=== PATIENT | female | born 1985 | race Two or more races ===

== ENCOUNTER 2018-11-05 12:01 | Emergency (ER) | payer MEDICAID ==
[~2018-11-05] VITALS: Ht 165.1 cm; Wt 65.0 kg
[2018-11-05 15:36] LABS: CLARITY URINE CLEAR (CLEAR); COLOR URINE YELLOW (YELLOW); KETONES URINE NEGATIVE (NEGATIVE); LEUKOCYTE ESTERASE URINE NEGATIVE (NEGATIVE); NITRITE URINE NEGATIVE (NEGATIVE); OCCULT BLOOD URINE NEGATIVE (NEGATIVE); PH URINE 6.5 (4.5-8.0); PROTEIN URINE NEGATIVE (NEGATIVE); SPECIFIC GRAVITY URINE 1.015 (1.005-1.030); UROBILINOGEN URINE 0.2 E.U./dL (0.2-1.0)
[2018-11-05] MEDS ORDERED: ACETAMINOPHEN 325MG TABLET PO ONE (17:30)
[2018-11-05] MEDS ORDERED: ACETAMINOPHEN 325MG TABLET ONE (19:00)
[2018-11-05 20:11] LABS: HCG SCREEN NEGATIVE
[2018-11-05 23:00] VITALS: BP 110/66
== END 2018-11-05 23:00 | disposition home or self-care (01) ==
LOC: ER 12:01
DX: S09.90XA Unspecified injury of head, initial encounter (principal); S39.91XA Unspecified injury of abdomen, initial encounter; Y04.0XXA Assault by unarmed brawl or fight, initial encounter; Y93.89 Activity, other specified; Y92.89 Other specified places as the place of occurrence of the external cause; Y99.8 Other external cause status
CPT/HCPCS: 71045; 74176; 81025; 84703; 99284